=== PATIENT | male | born 1980 | race Two or more races ===

== ENCOUNTER 2021-02-06 03:10 | Inpatient (IN) | payer OTHER ==
[~2021-02-06] VITALS: Ht 175.3 cm; Wt 109.9 kg
[2021-02-06] MEDS ORDERED: EPINEPHrine HCL 1 MG/1 ML AMP IM ONE (04:30)
[2021-02-06] MEDS ORDERED: FAMOTIDINE (10MG/ML) 2ML VL IV ONE (04:45)
[2021-02-06] MEDS ORDERED: SODIUM CHLORIDE 0.9% 1,000 ML IV ONE ×2 (04:45→08:00)
[2021-02-06] MEDS ORDERED: methylPREDNISolone SOD SUCC 125 MG/2 ML VL IV ONE (04:45)
[2021-02-06] MEDS ORDERED: diphenhdrAMINE HCL 50 MG/1 ML VL IV ONE (04:45)
[2021-02-06 07:16] LABS: Basophils # (auto) 0 10 ^3/uL (0-0.2); Basophils % (auto) 0.6 % (0.0-2.0); Eosinophils # (auto) 0 10 ^3/uL (0-0.8); Eosinophils % (auto) 0.5 % (0.0-7.0); Hematocrit 41.4 % (41.0-53.0); Hemoglobin 14.2 g/dL (13.5-17.5); Lymphocytes # (auto) 0.7 10 ^3/uL (0.4-5.4); Lymphocytes % (auto) 9.5 % (10.0-50.0); Mean Corpuscular Hemoglobin 28.5 pg (28.0-32.0); Mean Corpuscular Hgb Conc. 34.3 g/dL (32.0-36.0); Mean Corpuscular Volume 83.3 fL (80.0-100.0); Monocytes # (auto) 0.3 10 ^3/uL (0-1.3); Monocytes % (auto) 3.7 % (0.0-12.0); Neutrophils % (auto) 85.7 % (37.0-80.0); Nucleated Red Blood Cells % 0.1 %; Red Blood Cells 4.98 10^6/uL (4.5-5.90); Red Cell Distribution Width 17.8 % (11.8-14.3)
[2021-02-06 07:31] LABS: INR 1.08 (0.9-1.15)
[2021-02-06 07:36] LABS: Potassium 3.5 mmol/L (3.5-5.1)
[2021-02-06 07:48] LABS: Albumin 3.6 g/dL (3.4-5.0); BUN/Creatinine Ratio 13.2; Bilirubin, Total 3.6 mg/dL (0.2-1.0); Calcium 8.1 mg/dL (8.5-10.1); Magnesium 2.6 mg/dL (1.6-2.6); Total Protein 7.9 g/dL (6.4-8.2)
[2021-02-06] MEDS ORDERED: LORazepam 2MG/ML-1ML VIAL IV ONE (08:00)
[2021-02-06 08:14] LABS: Urine Bacteria NONE SEEN /hpf (None Seen); Urine Blood Negative /uL (Negative); Urine Specific Gravity 1.014 (1.001-1.035); Urine WBC 20 /hpf (0 - 3)
[2021-02-06 08:37] LABS: Alcohol, Urine < 3.0 mg/dL (0-10); Amphetamine Screen, Urine POSITIVE (NEGATIVE); Barbiturate Scree,Urine NEGATIVE (NEGATIVE); Benzodiazephine Screen, Urine NEGATIVE (NEGATIVE); Cannabinoid Screen, Urine NEGATIVE (NEGATIVE); Cocaine Screen, Urine NEGATIVE (NEGATIVE); Opiate Scree,Urine NEGATIVE (NEGATIVE)
[2021-02-06 08:47] LABS: Phencyclidine Screen, Urine NEGATIVE (NEGATIVE)
[2021-02-06] MEDS ORDERED: NALOXONE HCL 1MG/ML 2ML SYRINGE ONE (09:04)
[2021-02-06] MEDS ORDERED: FLUMAZENIL 0.1 MG/ML INJ 10ML MDV IV ONE ×2 (09:04→09:15)
[2021-02-06] MEDS ORDERED: NALOXONE HCL 1MG/ML 2ML SYRINGE IV ONE (09:15)
[2021-02-06] MEDS ORDERED: SOD CHL 0.9%/ KCL 20MEQ 1,000 ML IV ONE (16:00)
[2021-02-06] MEDS ORDERED: ONDANSETRON HCL 4 MG/2 ML VIAL IV PRN (16:00)
[2021-02-06] MEDS ORDERED: MORPHINE SULFATE INJECTION 2 MG/ML SYRG IV PRN (16:00)
[2021-02-06] MEDS ORDERED: LORazepam 2MG/ML-1ML VIAL IV PRN (16:00)
[2021-02-06] MEDS ORDERED: diphenhdrAMINE HCL 50 MG/1 ML VL IV PRN (16:00)
[2021-02-06] MEDS ORDERED: DEXTROSE (50%) 50ML SYRG IV PRN (16:00)
[2021-02-06] MEDS ORDERED: NITROGLYCERIN 0.4 MG SL TAB SL PRN (16:00)
[2021-02-06] MEDS ORDERED: hydrALAZINE HCL 20 MG/ML VL IV PRN (16:00)
[2021-02-06] MEDS: ACCU-CHEK COMFORT CURVE STRIP VI SCH ×2 (20:00→20:36)
[2021-02-06] MEDS: methylPREDNISolone SOD SUCC 125 MG/2 ML VL IV SCH (20:36)
[2021-02-06] MEDS: InsuLIN REG 1unit/0.01ml Soln (100units/ml) SC SCH ×2 (20:37→20:39)
[2021-02-06 22:42] VITALS: BP 155/81
[2021-02-07] MEDS: ACCU-CHEK COMFORT CURVE STRIP VI SCH ×7 (00:23→23:38)
[2021-02-07] MEDS: InsuLIN REG 1unit/0.01ml Soln (100units/ml) SC SCH ×7 (00:26→23:35)
[2021-02-07 05:35] LABS: Basophils # (auto) 0 10 ^3/uL (0-0.2); Basophils % (auto) 0.1 % (0.0-2.0); Eosinophils # (auto) 0 10 ^3/uL (0-0.8); Hematocrit 39.3 % (41.0-53.0); Hemoglobin 13.3 g/dL (13.5-17.5); Lymphocytes # (auto) 0.5 10 ^3/uL (0.4-5.4); Lymphocytes % (auto) 5.8 % (10.0-50.0); Mean Corpuscular Hemoglobin 28.7 pg (28.0-32.0); Mean Corpuscular Hgb Conc. 33.9 g/dL (32.0-36.0); Mean Corpuscular Volume 84.6 fL (80.0-100.0); Monocytes # (auto) 0.2 10 ^3/uL (0-1.3); Monocytes % (auto) 1.9 % (0.0-12.0); Neutrophils # (auto) 8.5 10 ^3/uL (1.6-8.6); Neutrophils % (auto) 92.2 % (37.0-80.0); Red Blood Cells 4.64 10^6/uL (4.5-5.90); Red Cell Distribution Width 17.8 % (11.8-14.3); White Blood Cell 9.3 10^3/uL (4.4-10.8)
[2021-02-07 05:50] LABS: Albumin 3.5 g/dL (3.4-5.0); Calcium 8.7 mg/dL (8.5-10.1); Potassium 4.1 mmol/L (3.5-5.1)
[2021-02-07 05:52] LABS: BUN/Creatinine Ratio 13.4
[2021-02-07 05:55] LABS: Bilirubin, Total 2.3 mg/dL (0.2-1.0); Total Protein 7.4 g/dL (6.4-8.2)
[2021-02-07 08:00] VITALS: BP 138/75
[2021-02-07] MEDS: PANTOPRAZOLE 40 MG/10 ML VIAL INJ IV SCH (10:09)
[2021-02-07] MEDS: methylPREDNISolone SOD SUCC 125 MG/2 ML VL IV SCH ×2 (10:09→21:22)
[2021-02-07] MEDS: ENOXAPARIN SOD 40 MG/0.4 ML SYRINGE SC SCH (10:10)
[2021-02-07] MEDS: SODIUM CHLORIDE 0.9% 1,000 ML IV SCH ×2 (13:00→17:46)
[2021-02-07 13:30] VITALS: BP 140/80
[2021-02-07] MEDS: diphenhdrAMINE HCL 50 MG/1 ML VL IV SCH ×3 (13:49→23:39)
[2021-02-07 16:30] VITALS: BP 129/80
[2021-02-07 22:25] VITALS: BP 125/73
[2021-02-08] MEDS: SODIUM CHLORIDE 0.9% 1,000 ML IV SCH ×3 (01:20→14:40)
[2021-02-08] MEDS: InsuLIN REG 1unit/0.01ml Soln (100units/ml) SC SCH ×6 (04:06→23:57)
[2021-02-08] MEDS: ACCU-CHEK COMFORT CURVE STRIP VI SCH ×5 (04:06→21:14)
[2021-02-08 05:00] VITALS: BP 122/75
[2021-02-08] MEDS: diphenhdrAMINE HCL 50 MG/1 ML VL IV SCH ×4 (06:21→23:43)
[2021-02-08] MEDS: PANTOPRAZOLE 40 MG/10 ML VIAL INJ IV SCH (08:13)
[2021-02-08] MEDS: methylPREDNISolone SOD SUCC 125 MG/2 ML VL IV SCH ×2 (08:14→23:43)
[2021-02-08] MEDS: ENOXAPARIN SOD 40 MG/0.4 ML SYRINGE SC SCH (08:14)
[2021-02-08 09:00] VITALS: BP 130/80
[2021-02-08 13:07] VITALS: BP 160/98
[2021-02-08 17:00] VITALS: BP 156/96
[2021-02-08 22:00] VITALS: BP 118/85
[2021-02-09] MEDS: ACCU-CHEK COMFORT CURVE STRIP VI SCH ×3 (00:07→07:50)
[2021-02-09] MEDS: SODIUM CHLORIDE 0.9% 1,000 ML IV SCH ×2 (01:22→04:00)
[2021-02-09 05:00] VITALS: BP 144/87
[2021-02-09] MEDS: InsuLIN REG 1unit/0.01ml Soln (100units/ml) SC SCH ×2 (05:01→07:50)
[2021-02-09] MEDS: diphenhdrAMINE HCL 50 MG/1 ML VL IV SCH (05:11)
[2021-02-09] MEDS: PANTOPRAZOLE 40 MG/10 ML VIAL INJ IV SCH (07:51)
[2021-02-09] MEDS: methylPREDNISolone SOD SUCC 125 MG/2 ML VL IV SCH (07:51)
[2021-02-09] MEDS: ENOXAPARIN SOD 40 MG/0.4 ML SYRINGE SC SCH (07:51)
[2021-02-09 09:00] VITALS: BP 135/88
== END 2021-02-09 10:20 | DRG 916 ==
LOC: ER 03:10 → EDBD 03:10 → OVERFLOW 15:47 → CENTRAL 17:50
PROVIDERS: ADMIT Family Medicine; ATTEND Family Medicine
DX: T78.01XA Anaphylactic reaction due to peanuts, initial encounter (principal); E83.51 Hypocalcemia; E11.65 Type 2 diabetes mellitus with hyperglycemia; E86.0 Dehydration; F15.10 Other stimulant abuse, uncomplicated; R21 Rash and other nonspecific skin eruption; F17.200 Nicotine dependence, unspecified, uncomplicated; Z20.822 Contact with and (suspected) exposure to COVID-19; Z71.51 Drug abuse counseling and surveillance of drug abuser; Z91.010 Allergy to peanuts; Z71.6 Tobacco abuse counseling
CPT/HCPCS: 36415; 70450; 71045; 74176; 80053; 80307; 81001; 82140; 82962; 83036; 83605; 83690; 83735; 83880; 84443; 84484; 85025; 85610; 87040; 87426; 93005; 96372; 96374; 96375; 99291; C9113; G0378; J0171; J1815; J3490